=== PATIENT | female | born 1940 | race Caucasian/White ===

== ENCOUNTER 2021-04-16 13:12 | Emergency (ER) | payer OTHER ==
[~2021-04-16] VITALS: Ht 160 cm; Wt 72.6 kg
[2021-04-16] MEDS ORDERED: CITALOPRAM HBR10 MG (15:36)
[2021-04-16] MEDS ORDERED: EUTHYROX125 MCG PO (15:36)
[2021-04-16] MEDS ORDERED: DABI150C (15:36)
[2021-04-16] MEDS ORDERED: CITALOPRAM HBR10 MG PO (15:36)
[2021-04-16] MEDS ORDERED: Norco 5-325 Ta1 EACH PO ×2 (15:55→15:58)
== END 2021-04-16 16:42 | disposition home or self-care (01) ==
LOC: ER 13:12
DX: S82.145A Nondisplaced bicondylar fracture of left tibia, initial encounter for closed fracture (principal); S82.832A Other fracture of upper and lower end of left fibula, initial encounter for closed fracture; Z88.0 Allergy status to penicillin; Z88.1 Allergy status to other antibiotic agents; Z88.8 Allergy status to other drugs, medicaments and biological substances; Z88.2 Allergy status to sulfonamides; Z79.899 Other long term (current) drug therapy
CPT/HCPCS: 29505; 73502; 73562-LT; 73590; 99283-25; A9270